=== PATIENT | female | born 1975 | race Two or more races ===

== ENCOUNTER 2022-06-03 09:41 | Emergency (ER) | payer OTHER ==
[~2022-06-03] VITALS: Ht 157.5 cm; Wt 74.8 kg
[2022-06-03 09:46] VITALS: BP 145/85
[2022-06-03] MEDS ORDERED: ONDANSETRON 4 MG/2 ML VIAL IVP ONE (10:00)
[2022-06-03] MEDS ORDERED: NACL 0.9% 1,000 ML IV ONE (10:00)
[2022-06-03] MEDS ORDERED: KETOROLAC 15 MG/ML VIAL IVP ONE (10:00)
[2022-06-03 10:40] LABS: BASOPHILS # (AUTO) 0.1 K/uL (0.00-0.22); BASOPHILS % (AUTO) 0.4 % (0.0-2.0); EOSINOPHILS % (AUTO) 0.2 % (0.0-4.0); HEMATOCRIT 36.3 % (36-48); HEMOGLOBIN 11.8 g/dL (12.0-16.0); LYMPHOCYTES # (AUTO) 1.5 K/uL (2.5-16.5); LYMPHOCYTES % (AUTO) 12.7 % (20.5-51.1); MEAN CORPUSCULAR HEMOGLOBIN 29 pg (27-31); MEAN CORPUSCULAR HGB CONC 33 g/dL (33-37); MEAN CORPUSCULAR VOLUME 87.9 fL (80-94); MONOCYTES # (AUTO) 0.4 K/uL (0.8-1.0); MONOCYTES % (AUTO) 2.9 % (1.7-9.3); NEUTROPHILS # (AUTO) 10.2 K/uL (1.8-7.7); NEUTROPHILS % (AUTO) 83.8 % (42.2-75.2); PLATELET COUNT (AUTO) 294 K/uL (140-450); RED BLOOD CELL COUNT(AUTO) 4.13 MIL/uL (4.20-5.40); WHITE BLOOD COUNT (AUTO) 12.1 K/uL (4.8-10.8)
--- NOTE | 2022-06-03 10:40 | NUR ---
PT IS A AND O TIMES 4. PERRL. PT COMPLAINED OF HEADACHE AND NAUSEA. SHES STATED IT GOT WORSE WITH LIGHT. TURNED OFF LIGHT AND ADMINISTERED NORMAL SALINE, ZOFRAN AND KETOROLAC FOR NAUSEA. PT IN ROOM 9, MEDICATED FOR NAUSEA AND HEADACHE 12/30, LIGHTS OFF PER PT REQUEST, O2 SAT 99% RA, SB ON CM, HR 56, AMBULATORY TO ROOM, ORIENTED TIMES 4, IV FLUIDS STARTED, SR UP TIMES 2, LABS SENT, AWAITS DISPO
[2022-06-03 10:41] LABS: APPEARANCE,URINE CLEAR (CLEAR); BILIRUBIN,URINE NEGATIVE (NEGATIVE); BLOOD, URINE MODERATE (NEGATIVE); COLOR,URINE YELLOW (YELLOW); LEUKOCYTE ESTERASE ,URINE NEGATIVE (NEGATIVE); NITRITE, URINE NEGATIVE (NEGATIVE); UGLUCOSE NEGATIVE (NEGATIVE)
[2022-06-03 10:54] LABS: RBC,URINE 11-20 (MOD) /HPF (0-5); WBC,URINE 0-5 /HPF (0-5)
--- NOTE | 2022-06-03 10:58 | NUR ---
FEELS BETTER ABOUT NAUSEA AND HEADACHE, NOW 07/30, SB ON CM, O2 SAT 99% RA, SR UP TIMES 2. AWAITS DISPO
[2022-06-03 11:00] LABS: ALBUMIN 4.2 g/dL (3.4-5.0); ANION GAP 11.9 (8-16); CARBON DIOXIDE 28.6 mmol/L (21-32); CREATININE 0.6 mg/dL (0.6-1.3); POTASSIUM 4.5 mmol/L (3.5-5.1); TOTAL BILIRUBIN 0.7 mg/dL (0.0-1.0)
--- NOTE | 2022-06-03 11:38 | NUR ---
SLEEPING, NO AC DISTRESS, SR ON CM, O2 SAT 99% RA, SR UP TIMES 2
[2022-06-03] MEDS ORDERED: ONDA-188 PO (11:51)
[2022-06-03 12:09] VITALS: BP 123/76
--- NOTE | 2022-06-03 12:10 | NUR ---
DC'D HOME, TOLERATED PO TRIAL WELL, NO ABD PAIN, NO HEADACHE, NO N/V, DC Patient discharged with v/s stable. Written and verbal after care instructions given and explained. Patient verbalized understanding. Ambulatory with steady gait. All questions addressed prior to discharge. Advised to follow up with PMD.
== END 2022-06-03 12:12 | disposition home or self-care (01) ==
LOC: MED 09:41
DX: K29.70 Gastritis, unspecified, without bleeding (principal); F10.129 Alcohol abuse with intoxication, unspecified; Y90.9 Presence of alcohol in blood, level not specified; E86.0 Dehydration; Z88.0 Allergy status to penicillin
CPT/HCPCS: 36415; 80053; 81001; 81025; 83690; 85025; 96361; 96374; 96375; 99284; J1885; J2405; J7030